=== PATIENT | male | born 1950 | race African-American/Black ===

== ENCOUNTER 2019-03-11 09:54 | Emergency (ER) | payer OTHER, MEDICARE, BC ==
[2019-03-11] MEDS ORDERED: ACETAMINOPHEN 325 MG TABLET PO ONE (10:20)
[2019-03-11] MEDS ORDERED: LIDOCAINE 5% (700 MG) TRANSDERMAL ADH..PATCH TP ONE (10:20)
--- NOTE | 2019-03-11 10:26 | ER Document Report ---
HPI - HPI Time Seen by Provider: 03/11/19 10:09 Pain Level: 4 Context: 60-year-old male with hypertension, non-insulin diabetes mellitus presents to the emergency department with low back pain. Patient states that he was diagnosed with a UTI a couple of weeks ago, placed on Keflex, then saw his primary doctor who then switched him to levofloxacin. A CT abdomen/pelvis was performed and patient was told that it was unremarkable. Patient had blood work also and everything was normal. Patient finished all of the antibiotics but states that he is still having low back pain. Patient states that the back pain is central and radiates bilaterally at the level of approximately L1. Patient is unsure if this is arthritis as it is worse in the morning and after he moves around for 15 or 20 minutes he gets better. Patient never got retested after he took the levofloxacin and is unsure if this is a UTI or just low back pain. Patient denies fevers or chills, denies urinary retention, denies bowel incontinence, denies saddle anesthesia, denies IV drug use. - REPRODUCTIVE Reproductive: DENIES: : Past Medical History - Social History Smoking Status: Never Smoker Chew tobacco use (# tins/day): No Frequency of alcohol use: None Drug Abuse: None Family History: None Patient has suicidal ideation: No Patient has homicidal ideation: No Vertical Provider Document - CONSTITUTIONAL Notes: PHYSICAL EXAMINATION: Reviewed vital signs and charting by RN GENERAL: Alert, interacts well. No acute distress. HEAD: Normocephalic, atraumatic. EYES: Pupils equal and round. Extraocular movements intact. ENT: Oral mucosa moist, tongue midline. NECK: Full range of motion. Trachea midline. LUNGS: Clear to auscultation bilaterally, no wheezes, rales, or rhonchi. No respiratory distress. HEART: Regular rate and rhythm. No murmur ABDOMEN: soft, non-tender. No distention. Bowel sounds present BACK: Mild paraspinal tenderness to palpation bilaterally at the level of L1 EXTREMITIES: Moves all 4 extremities spontaneously. No edema, No cyanosis. PSYCH: Normal affect, normal mood. SKIN: Warm, dry, normal turgor. No rashes or lesions noted. - INFECTION CONTROL TRAVEL OUTSIDE OF THE [place] IN LAST 30 DAYS: Yes Course - Re-evaluation Re-evalutation: 03/11/19 10:25 This pleasant gentleman presents with low back pain and is unsure if this is a UTI or typical symptoms of arthritis. When he was diagnosed with a UTI he had the exact same symptoms so wants to ensure that there is nothing wrong before he goes back to [place]. Urine has been ordered and I ordered him a Lidoderm patch. Urine pending. 03/11/19 11:08 Urine is significant for UTI and it was an contaminated specimen. I am going to place the patient on Keflex again and sent it for culture. I have explained this to the patient and he is stable for discharge with instructions for following up with the culture. - Vital Signs Vital signs: Temp Pulse Resp BP Pulse Ox 97.9 F 80 17 155/72 H 100 03/11/19 10:03 03/11/19 10:03 03/11/19 10:03 03/11/19 10:03 03/11/19 10:03 Discharge - Discharge Clinical Impression: Urinary tract infection Qualifiers: Urinary tract infection type: site unspecified Hematuria presence: without hematuria Qualified Code(s): N39.0 - Urinary tract infection, site not specified Condition: Good Disposition: HOME, SELF-CARE Additional Instructions: Your urine shows findings consistent with a urinary tract infection. I am prescribing you with Keflex because there is low resistance in this area. I did send the urine for culture so please follow-up in 2 days or have your primary doctor call here to get results to see what biotic the infection is sensitive to return to. Emergency room if you develop fever >101F, persistent vomiting, become lethargic, have severe pain in your sides, or any other symptoms that are concerning to you. Referrals: LOCALMD,NO [Primary Care Provider] - Follow up as needed
[2019-03-11 11:01] LABS: APPEARANCE,URINE CLEAR; BILIRUBIN,URINE NEGATIVE (NEGATIVE); COLOR,URINE YELLOW; GLUCOSE, URINE NEGATIVE (NEGATIVE); KETONES,URINE NEGATIVE (NEGATIVE); LEUKOCYTE ESTERASE,URINE MODERATE (NEGATIVE); NITRITE,URINE NEGATIVE (NEGATIVE); PROTEIN,URINE NEGATIVE (NEGATIVE); UROBILINOGEN,URINE NEGATIVE mg/dL (<2.0)
[2019-03-11 11:42] VITALS: BP 148/67
== END 2019-03-11 11:37 | disposition home or self-care (01) ==
LOC: ER 09:54
DX: N39.0 Urinary tract infection, site not specified (principal); M54.5 Low back pain; E11.9 Type 2 diabetes mellitus without complications; I10 Essential (primary) hypertension
CPT/HCPCS: 81001; 87086; 99283